=== PATIENT | male | born 1950 | race Caucasian/White ===

== ENCOUNTER 2018-08-23 12:22 | Emergency (ER) | payer OTHER, SELFPAY ==
[2018-08-23 12:23] VITALS: BP 136/91; PULSE 95; RESP 18; TEMP 36.6; O2SAT 98; BMI 26.6
--- NOTE | 2018-08-23 12:55 | RAD_ITS ---
STUDY: X-RAY - LEFT TIBIA AND FIBULA REASON FOR EXAM: Male, 67 years old. Slipped in moderate. History of distal tib-fib surgery. TECHNIQUE: 2 view(s) of the tibia and fibula were obtained. COMPARISON: None. FINDINGS: There is a transverse fracture of the medial malleolus with slight lateral displacement and lateral angulation of the distal fracture fragment. Posterior cortical discontinuity of the distal tibia consistent with an avulsion fracture of the posterior malleolus. There is an oblique fracture of the distal fibular metadiaphysis with minor overriding, lateral displacement, and lateral angulation of the distal fracture fragment. The proximal tibia and fibula are intact. There is soft tissue swelling about the ankle. Faint atherosclerotic vascular calcifications are present. RAD/Tibia & Fibula 2 Views IMPRESSION: Trimalleolar fracture of the left ankle, as noted. The proximal tibia and fibula are intact. Electronically Signed: Jamin Bartlett MD at 13:38 EDT , Service support ,
--- NOTE | 2018-08-23 12:56 | ED.VISSUMM ---
- ER Visit Summary Date of Service: 08/23/18 Chief Complaint: Left ankle injury History of Present Illness: The patient is a 67 M who presents for left ankle injury that occurred 2 weeks ago. Patient states he slipped in the mud and fell, injuring his left ankle 2 weeks ago. He has been having pain and swelling that is gradually worsening. He has been ambulating but is using a cane to help. He has a history of prior fracture status post surgery to the ankle. He has been taking leftover OxyContin and oxycodone that he has from surgery 10 years ago. Patient denies any other injuries. No other complaints. Physical Examination: Patient is awake and alert sitting in bed in no distress. Unkempt appearing. Examination of the left lower extremity shows edema, erythema and tenderness to the distal lower extremity extending to the base of the toes. Tenderness to palpation diffusely. Sensation intact. Pain with movement. Compartments are soft. DP pulse 2+. Remainder of exam unremarkable. Test Results: Medications Given Discontinued Medications Hydrocodone Bitart/Acetaminophen ([place] 5mg-325mg) 1 tablet PO X1 ONE Stop: 08/23/18 12:57 Last Admin: 08/23/18 13:12 Dose: 1 tablet Clinical Impression(s) from Imaging Studies Tibia/Fibula X-Ray 08/23/18 12:55 IMPRESSION: Trimalleolar fracture of the left ankle, as noted. The proximal tibia and fibula are intact. Electronically Signed: Jamin Bartlett MD at 13:38 EDT , Service support , Ankle X-Ray 08/23/18 13:10 IMPRESSION: Trimalleolar fracture of the left ankle, as described. Electronically Signed: Jamin Bartlett MD at 13:56 EDT , Service support , Emergency Department Course and Treatment: Patient's history and physical examination is concerning for possible fracture. Patient was given one [place] for pain. X-ray was performed of the tib-fib and the ankle. Patient had a trimalleolar fracture without dislocation. Discussed with patient that he will require splinting, nonweightbearing status and follow-up with orthopedics. Patient stated he just wanted pain control in a walking boot and to go home. I had a long discussion with the patient that he would need to be nonweightbearing for this injury and it was serious, requiring close follow-up with orthopedic physician, whom I had on page to discuss further management. Patient told nurse that he wanted to leave AGAINST MEDICAL ADVICE because he had to leave before dark since he is not supposed to drive after dark. We discussed that it was not even for in the afternoon yet and that it was far from being dark out. Patient was adamant that he wanted to leave, and because of the nature of his injury, he was given a walking boot, as this was deemed better for the patient been no intervention at all. Patient was strongly advised to not walk and use his crutches that he already has at home and remain nonweightbearing. Patient was witnessed walking around the emergency department prior to boot placement and would not follow instructions to stay off of his foot. Because patient did not allow appropriate consultation with orthopedics and did not want to stay for proper splinting, he was told he had to sign out AGAINST MEDICAL ADVICE. Patient stated he understood the risks of leaving AGAINST MEDICAL ADVICE, including worsening of his condition and inability to ambulate if his leg worsens. Patient was given follow-up with Dr. Johnson, with whom I spoke while patient was getting ready to leave. Patient was instructed to use OTC pain medications. Patient refused to change his mind about leaving AMA and was discharged AMA with a walking boot and follow up information with Dr. Johnson. Treatment Plan: [] Disposition: [] Impression: Left trimalleolar fracture, left AGAINST MEDICAL ADVICE This note was generated with [employer] dictation software. It may contain incorrect words, spelling, and punctuation that were not noted in review of the chart prior to signing ED Disposition - Plan for ED Patient: Chief Complaint: Lower Extremity Injury Instructions: ED Fx Lower Ext Referrals: Timothy Johnson DO [STAFF PHYSICIAN] - 5-7 Days [facility] [Primary Care Provider] - Additional Instructions: Wear the boot at all times. Do not bear weight on the foot. Use crutches for ambulation. Use over the counter pain medications as needed for pain since you do not want to wait for further management. Follow up with Dr. Johnson the orthopedic physician as soon as possible. Return at any time for further evaluation and management if you change your mind.
--- NOTE | 2018-08-23 13:10 | RAD_ITS ---
STUDY: X-RAY - LEFT ANKLE REASON FOR EXAM: Male, 67 years old. Fall and mild. History of surgery on ankle/distal tibia and fibula. TECHNIQUE: 3 view(s) of the ankle. COMPARISON: None. FINDINGS: There is a transverse fracture of the medial malleolus with slight lateral displacement and lateral angulation of the distal fracture fragment. Posterior cortical discontinuity of the distal tibia consistent with an avulsion fracture of the posterior malleolus. There is an oblique fracture of the distal fibular metadiaphysis with mild overriding and lateral displacement of the distal fracture fragment. Normal tibiotalar articulation and ankle mortise. Normal visualized talus. There is an early enthesophyte involving the posterior superior calcaneus at the site of insertion of the Achilles tendon. There is a plantar calcaneal spur. 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 The visualized subtalar, calcaneocuboid and tarsal articulations are normal. There is soft tissue swelling at the ankle. Faint atherosclerotic vascular calcifications are present. 2 small ossicles are noted in the medial soft tissues of the hindfoot. RAD/Ankle min 3 Views IMPRESSION: Trimalleolar fracture of the left ankle, as described. Electronically Signed: Jamin Bartlett MD at 13:56 EDT , Service support ,
[2018-08-23] MEDS: HYDROcodone Bitartrate/Apap 5/325 Tablet PO (13:12)
--- NOTE | 2018-08-23 13:26 | ED.RN ---
pt arrives to ed for left foot pain. pt informed me that he wasn't here for his foot, but for his 90 days prescription of [address]ir. dr was informed and patient educated on er protocol for controlled substance prescriptions. states she would speak with the patient. bipin brennan, rn [id number]
--- NOTE | 2018-08-23 17:00 | ED.DEP ---
ED Disposition - Plan for ED Patient: Chief Complaint: Lower Extremity Injury Instructions: ED Fx Lower Ext Referrals: [facility] [Primary Care Provider] - Timothy Johnson DO [STAFF PHYSICIAN] - 5-7 Days Additional Instructions: Wear the boot at all times. Do not bear weight on the foot. Use crutches for ambulation. Use over the counter pain medications as needed for pain since you do not want to wait for further management. Follow up with Dr. Johnson the orthopedic physician as soon as possible. Return at any time for further evaluation and management if you change your mind.
--- NOTE | 2018-08-23 18:47 | NURSING ---
PT REFUSED TO STAY FOR FURTHER TX. DR BURKS. REFERRED TO ORTHO. Marlene HERNANDEZ RN [phone]
== END 2018-08-23 18:49 | disposition home or self-care (01) ==
LOC: ED 12:53
PROVIDERS: Emergency Provider Emergency Medicine
DX: S82.855A Nondisplaced trimalleolar fracture of left lower leg, initial encounter for closed fracture (principal); W01.0XXA Fall on same level from slipping, tripping and stumbling without subsequent striking against object, initial encounter; Y93.01 Activity, walking, marching and hiking; Y92.89 Other specified places as the place of occurrence of the external cause; Y99.8 Other external cause status; Z91.19 Patient's noncompliance with other medical treatment and regimen
CPT/HCPCS: 73590; 73610; 99282